=== PATIENT | male | born 1995 | race Caucasian/White ===

== ENCOUNTER 2018-05-09 08:29 | Emergency (ER) | payer BC ==
[~2018-05-09] VITALS: Ht 190.5 cm; Wt 97.7 kg
[~2018-05-09 08:29] MED LIST: NO HOME MEDICATIONS; NORCO 325 MG-51 TAB PO
[2018-05-09] MEDS ORDERED: IBU600 MG PO (08:52)
[2018-05-09] MEDS ORDERED: TAMIFLU 75MG75 MG PO (09:51)
[2018-05-09 10:00] VITALS: BP 114/99; PULSE 85; TEMP 97.8
== END 2018-05-09 10:00 | disposition home or self-care (01) ==
LOC: COL.ER 08:29
DX: J10.1 Influenza due to other identified influenza virus with other respiratory manifestations (principal)